=== PATIENT | male | born 1940 | race Caucasian/White ===

== ENCOUNTER 2016-02-27 18:35 | Emergency (ER) | payer MEDICARE ==
--- NOTE | 2016-02-27 19:19 | Emergency Department Record ---
History of Present Illness - General Chief complaint: Allergic Reaction Stated complaint: REACTION TO LEVAQUIN Time Seen by Provider: 02/27/16 19:13 Source: Patient, Family Mode of Arrival: Ambulatory Limitations: No limitations - History of Present Illness Initial Comments: 75yo male presents with bilateral upper thigh and hip pain today. He is concerned that this could be tendon injury or secondary to his recent starting of Levaquin. He was at physical therapy today for a right shoulder issue and mentioned this to his therapist. She informed him of the potential link to quinolones. No specific injury occurred. He has pain with going from sitting to standing. No swelling. No loss of function. No rash. No redness. PCP is Dr Guerra. He was given the antibiotic for a current but improving productive cough. MD Complaint: Other -: Days(s) Exposure: Medication Severity: Moderate Treatment Prior to Arrival: Other (Levaquin) Previous Allergy History: None - Related Data Home Medications Medication Instructions Recorded Confirmed Last Taken Levocetirizine Dihydrochloride 5 mg PO DAILY 03/22/15 05/22/15 05/16/15 [Xyzal] Lisinopril [Lisinopril] 2.5 mg PO DAILY 03/22/15 05/22/15 05/16/15 Metformin HCl [Glucophage Ir] 500 mg PO BID 03/22/15 05/22/15 05/16/15 Pravastatin Sodium [Pravastatin 40 mg PO DAILY 03/22/15 05/22/15 05/16/15 Sodium] Colesevelam HCl [Welchol] 3.75 gm PO ASDIR 02/27/16 02/27/16 Unknown Previous Rx's Medication Instructions Recorded Azithromycin [Zithromax] 250 mg PO DAILY #6 tab 02/27/16 Allergies Allergy/AdvReac Type Severity Reaction Status Date / Time Cephalosporins Allergy Unknown RASH Verified 05/17/15 10:11 Review of Systems Constitutional: Denies: Chills, Fever, Malaise, Night sweats, Weakness Eyes: Denies: Eye discharge, Eye pain, Photophobia, Vision change ENT: Reports: Congestion Respiratory: Reports: Cough. Denies: Dyspnea, Hemoptysis, Stridor, Wheezes Cardiovascular: Denies: Chest pain, Palpitations, Syncope Endocrine: Denies: Fatigue, Polydipsia, Polyuria Gastrointestinal: Denies: Abdominal pain, Diarrhea, Nausea, Vomiting Genitourinary: Denies: Dysuria, Hematuria, Urgency Musculoskeletal: Reports: As per HPI, Arthralgia, Myalgia Skin: Denies: Bruising, Change in color, Rash Neurological: Denies: Confusion, Headache, Weakness Psychiatric: Denies: Anxiety Hematological/Lymphatic: Denies: Blood Clots, Easy bleeding, Easy bruising, Swollen glands Past Medical History - SOCIAL HISTORY Smoking Status: Never smoker - RESPIRATORY Hx Respiratory Disorders: Yes Hx Asthma: Yes (no problems lately very rare inhaler usage) Hx Bronchitis: Yes Hx Sleep Apnea: Yes (uses mouth device) Hx of CPAP: No - CARDIOVASCULAR Hx Cardio Disorders: Yes Comment:: high cholesterol - NEURO Hx Neuro Disorders: No - GI Hx GI Disorders: Yes Hx Reflux: Yes (occ) - Hx Genitourinary Disorders: Yes Hx Bladder Problem: Yes (on flomax for freq nocturia) - ENDOCRINE Hx Diabetes: Yes (diet controlled pt now on oral meds) Comment:: blood sugars 100-120 - MUSCULOSKELETAL Hx Musculoskeletal Disorders: Yes - PSYCH Hx Psych Problems: No - HEMATOLOGY/ONCOLOGY Hx Hematology/Oncology Disorders: No Family Medical History Hx Diabetes: Father Physical Exam - General General Appearance: Alert, Oriented x3, Cooperative, No acute distress Limitations: No limitations - Head Head exam: Normal inspection - Eye Eye exam: Normal appearance, PERRL. negative: Conjunctival injection, Periorbital swelling - ENT ENT exam: Normal exam Ear exam: Normal external inspection Nasal Exam: Normal inspection Mouth exam: Normal external inspection Teeth exam: Normal inspection Throat exam: Normal inspection - Neck Neck exam: Normal inspection, Full ROM. negative: Tenderness - Respiratory Respiratory exam: Normal lung sounds bilaterally. negative: Accessory muscle use, Decreased breath sounds, Prolonged expiratory, Respiratory distress, Rhonchi, Stridor, Wheezes - Cardiovascular Cardiovascular Exam: Regular rate, Normal rhythm, Normal heart sounds - GI/Abdominal GI/Abdominal exam: Soft. negative: Distended, Guarding, Rigid, Tenderness - Rectal Rectal exam: Deferred - exam: Deferred - Extremities Extremities exam: Normal inspection, Full ROM, Normal capillary refill, Tenderness. negative: Calf tenderness, Joint swelling, Pedal edema Image of Full Body: 1 - soft muscles, mild bilateral tenderness, full bilateral hip extension without limition of strength or pain, no LE edema bilateral - Back Back exam: Reports: Normal inspection, Full ROM. Denies: Muscle spasm, Rash noted, Tenderness - Neurological Neurological exam: Alert, Normal gait, Oriented X3, Reflexes normal - Psychiatric Psychiatric exam: Normal affect, Normal mood - Skin Skin exam: Dry, Intact, Normal color, Warm Course - Reevaluation(s) Reevaluation #1: Vitals reviewed No acute changes No weakness or limitations on examination His Levaquin will be discontinued Supportive care recommended and follow up recheck with Dr Guerra on Tuesday. 02/27/16 19:19 Disposition Disposition: Discharge Clinical Impression: Muscle Pain, Adverse effect of drug Disposition: Home, Self-Care Condition: (1) Good Instructions: Tendinitis (ED) Additional Instructions: Rest and avoid over exertion Stop the Levaquin Start Zithromax tomorrow Follow up with Dr Guerra Tuesday Return over the weekend if worse or any new concerns. Prescriptions: Azithromycin [Zithromax] 250 mg PO DAILY #6 tab Forms: Patient Portal Access Time of Disposition: 19:21
== END 2016-02-27 19:44 | disposition home or self-care (01) ==
LOC: ER 18:35
DX: T37.8X5A Adverse effect of other specified systemic anti-infectives and antiparasitics, initial encounter (principal); M79.1 Myalgia
CPT/HCPCS: 99282

== ENCOUNTER 2017-01-28 08:29 | Emergency (ER) | payer MEDICARE ==
--- NOTE | 2017-01-28 08:49 | Emergency Department Record ---
History of Present Illness - General Chief complaint: Nausea, Vomiting, Diarrhea Stated complaint: INTESTINAL PROBLEMS, DIARRHEA Time Seen by Provider: 01/28/17 08:43 Source: Patient Mode of Arrival: Ambulatory Limitations: No limitations - History of Present Illness Initial comments: 76 yo male presents with a concern about loose stools since October. He states his doctor and his GI specialist state it could be related to his gall bladder removal 25 years ago. He has watery non bloody stools. Normal only 1- 2 a day since October. He has had 5 since mid night. No pain, blood, fever, recent antibiotics. He called his GI doctor today but was unable to get an appointment. No nausea or vomiting. MD complaint: Diarrhea -: Month(s) Description of Vomiting: Watery Description of Diarrhea: Water Location: Other (None) Radiation: None Quality: Other Consistency: Intermittent Improves with: Medication Worsens with: None Associated Symptoms: Denies other symptoms - Related Data Home Medications Medication Instructions Recorded Confirmed Last Taken Glipizide [Glipizide ER] 2.5 mg PO DAILY 01/28/17 01/28/17 01/27/17 Previous Rx's Medication Instructions Recorded Hydrocortisone Acetate [Anusol-Hc] 25 mg RC DAILY #10 supp.rect 01/28/17 Allergies Allergy/AdvReac Type Severity Reaction Status Date / Time Cephalosporins Allergy Unknown RASH Verified 01/28/17 08:48 Review of Systems Constitutional: Denies: Chills, Fever, Malaise, Weakness Eyes: Denies: Eye discharge, Eye pain, Photophobia ENT: Denies: Congestion, Throat pain Respiratory: Denies: Cough, Dyspnea, Hemoptysis, Stridor, Wheezes Cardiovascular: Denies: Chest pain Endocrine: Denies: Fatigue, Polydipsia, Polyuria Gastrointestinal: Reports: Constipation (occasionally), Diarrhea. Denies: Abdominal pain, Hematemesis, Hematochezia, Melena, Nausea, Vomiting Genitourinary: Denies: Dysuria, Frequency Musculoskeletal: Denies: Arthralgia, Back pain, Myalgia, Neck pain Skin: Denies: Bruising, Change in color, Rash Neurological: Denies: Headache, Numbness, Weakness Psychiatric: Denies: Anxiety Hematological/Lymphatic: Denies: Blood Clots, Easy bleeding, Easy bruising, Swollen glands Past Medical History - SOCIAL HISTORY Smoking Status: Never smoker - RESPIRATORY Hx Respiratory Disorders: Yes Hx Asthma: Yes (no problems lately very rare inhaler usage) Hx Bronchitis: Yes Hx Sleep Apnea: Yes (uses mouth device) Hx of CPAP: No - CARDIOVASCULAR Hx Cardio Disorders: Yes Comment:: high cholesterol - NEURO Hx Neuro Disorders: No - GI Hx GI Disorders: Yes Hx Reflux: Yes (occ) - Hx Genitourinary Disorders: Yes Hx Bladder Problem: Yes (on flomax for freq nocturia) - ENDOCRINE Hx Diabetes: Yes (diet controlled pt now on oral meds) Comment:: blood sugars 100-120 - MUSCULOSKELETAL Hx Musculoskeletal Disorders: Yes - PSYCH Hx Psych Problems: No - HEMATOLOGY/ONCOLOGY Hx Hematology/Oncology Disorders: No Family Medical History Hx Diabetes: Father Physical Exam - General General Appearance: Alert, Oriented x3, Cooperative, No acute distress Limitations: No limitations - Head Head exam: Normal inspection - Eye Eye exam: Normal appearance. negative: Conjunctival injection - ENT ENT exam: Normal exam, Mucous membranes moist Ear exam: Normal external inspection Nasal Exam: Normal inspection Mouth exam: Normal external inspection - Neck Neck exam: Normal inspection, Full ROM. negative: Tenderness - Respiratory Respiratory exam: Normal lung sounds bilaterally. negative: Respiratory distress - Cardiovascular Cardiovascular Exam: Regular rate, Normal rhythm, Normal heart sounds - GI/Abdominal GI/Abdominal exam: Soft, Normal bowel sounds. negative: Distended, Guarding, Rebound, Rigid, Tenderness - Rectal Rectal exam: Heme (-) stool, Hemorrhoids (small right sided non tender, non thrombosed hemorrhoid) - exam: Deferred - Extremities Extremities exam: Normal inspection, Full ROM, Normal capillary refill. negative: Tenderness - Back Back exam: Reports: Normal inspection, Full ROM. Denies: Muscle spasm, Rash noted, Tenderness - Neurological Neurological exam: Alert, Normal gait, Oriented X3 - Psychiatric Psychiatric exam: Normal affect, Normal mood. negative: Agitated, Anxious - Skin Skin exam: Dry, Intact, Normal color, Warm Course - Reevaluation(s) Reevaluation #1: 01/28/17 08:48 The patient provided a stool sample 01/28/17 09:19 The CBC was reviewed. No acute changes. 01/28/17 10:08 the CMP was negative The stool was negative for rota, blood, and WBC's 01/28/17 10:17 The Stool studies are all negative Medical Decision Making - Lab Data Result diagrams: 01/28/17 09:00 01/28/17 09:00 Disposition Disposition: Discharge Clinical Impression: Diarrhea, Hemorrhage Disposition: Home, Self-Care Condition: (1) Good Instructions: Hemorrhoids (ED), Acute Diarrhea (ED) Additional Instructions: Call your GI doctor today for close follow up Return if you have blood, fever, or pain Prescriptions: Hydrocortisone Acetate [Anusol-Hc] 25 mg RC DAILY #10 supp.rect Forms: Patient Portal Access Time of Disposition: 10:17 Quality - Quality Measures Quality Measures: N/A - Blood Pressure Screening Does Patient Have Any of the Following: No Blood Pressure Classification: Hypertensive Reading Systolic Measurement: 140 Diastolic Measurement: 74 Screening for High Blood Pressure: < Pre-Hypertensive BP, F/U Documented > [ G8950] Pre-Hypertensive Follow-up Interventions: Referral to alternative/primary care provider.
[2017-01-28 09:11] LABS: HEMATOCRIT 38.6 % (42.0-52.0); HEMOGLOBIN 12.1 gm/dl (14.0-18.0); MEAN CELL VOLUME 80.4 fl (81-97); MEAN CORPUSCULAR HEMOGLOBIN 25.2 pg (27-33); MEAN CORPUSCULAR HGB CONC 31.3 g/dl (32-36); MEAN PLATELET VOLUME 10.8 fl (7.4-10.4); PLATELET COUNT 270 K/uL (130-400); RED CELL DISTRIBUTION WIDTH 16.2 % (11.5-14.5); WHITE BLOOD COUNT W/O DIFF 10.8 K/uL (4.2-12.2)
[2017-01-28 09:19] LABS: BLOOD UREA NITROGEN 12 mg/dL (8-23); CREATININE 0.7 mg/dL (0.7-1.2); EST GLOMERULAR FILTRATION RATE > 60 mL/min
[2017-01-28 09:20] LABS: TOTAL PROTEIN 7.5 g/dL (6.6-8.7)
[2017-01-28 09:22] LABS: GLUCOSE,RANDOM 156 mg/dL (74-109)
[2017-01-28 09:25] LABS: ALB/GLOB RATIO 1.3 (1.1-1.8); ALBUMIN 4.3 g/dL (4.0-5.0); ALKALINE PHOSPHATASE 78 U/L (40-129); ALT/SGPT 11 U/L (<41); AST/SGOT 17 U/L (10.0-50.0)
[2017-01-28 09:34] LABS: GIARDIA LAMBLIA ANTIGEN NOT DETECTED (NOT DETECT); ROTOVIRUS NOT DETECTED (NOT DETECT)
[2017-01-28 10:13] LABS: CRYPTOSPORIDIUM PARVUM ANTIGEN NOT DETECTED (NOT DETECT); MOLECULAR C DIFF TOXIN SCREEN NOT DETECTED (NOT DETECT)
== END 2017-01-28 10:50 | disposition home or self-care (01) ==
LOC: ER 08:29
DX: R19.7 Diarrhea, unspecified (principal); K64.9 Unspecified hemorrhoids
CPT/HCPCS: 80053; 82272; 85027; 87329; 87425; 87493; 89055; 99283

== ENCOUNTER 2017-03-31 10:22 | Day surgery (SDC) | payer MEDICARE ==
[2017-03-31] MEDS ORDERED: MIDAZOLAM HCL 2MG/2ML VIAL IV ONE (10:23)
[2017-03-31] MEDS ORDERED: PROPOFOL 10 MG/ML VIAL IV ONE (10:23)
[2017-03-31] MEDS ORDERED: LIDOCAINE 2% MDV (20MG/ML) 20ML VIAL IV ONE (10:23)
--- NOTE | 2017-04-01 12:50 | Operative Note ---
DATE OF SURGERY: 03/31/2017 OPERATION: COLONOSCOPY with random biopsy and photo. PREOPERATIVE DIAGNOSIS: Personal history of colon polyps and diarrhea. POSTOPERATIVE DIAGNOSIS: Normal exam, rule out microscopic colitis. PROCEDURE: After informed consent was obtained from the patient, he was placed in the left lateral decubitus position in the endoscopy suite, sedated and monitored by the department of anesthesia. Digital rectal examination was unremarkable. A well-lubricated [id number] colonoscope was inserted into the rectum and advanced to the cecum. Preparation quality was excellent. The cecum and terminal ileum, ascending colon, transverse colon, descending colon, sigmoid colon, and rectum were unremarkable. No polyps, mass lesions, or inflammation was seen. Forward and J-turn views of the rectum and anorectum were unremarkable. Random biopsies were obtained from the ascending colon, transverse colon, and descending colon. No excessive bleeding was noted. RECOMMENDATIONS: I would suggest the patient resume his medications and diet. Further recommendations based on tissue histology. If no evidence of microscopic colitis is found, I would question the possibility of him having diarrhea related to his metformin use. Other possibility would be irritable bowel. Repeat colonoscopy in 5 years would be suggested based on his history of polyps. As always, thank you for allowing me to participate in the healthcare of your patients. CC: Rubi CARIAS
== END 2017-03-31 12:08 | disposition home or self-care (01) ==
LOC: HOP 10:22
PROVIDERS: ATTEND Internal Medicine Gastroenterology
DX: R19.7 Diarrhea, unspecified (principal); Z86.010 Personal history of colon polyps; E11.9 Type 2 diabetes mellitus without complications; E78.00 Pure hypercholesterolemia, unspecified; Z79.84 Long term (current) use of oral hypoglycemic drugs; I10 Essential (primary) hypertension

== ENCOUNTER 2017-05-05 12:03 | Day surgery (SDC) | payer MEDICARE ==
[2017-05-05] MEDS ORDERED: NALOXONE 0.4 MG/1 ML VIAL IVP ONE (12:04)
[2017-05-05] MEDS ORDERED: LIDOCAINE 2% MDV (20MG/ML) 20ML VIAL IV ONE (12:04)
[2017-05-05] MEDS ORDERED: PROPOFOL 10 MG/ML VIAL IV ONE (12:04)
[2017-05-05] MEDS ORDERED: FENTANYL PF 100MCG/2ML VIAL IV ONE (12:04)
--- NOTE | 2017-05-06 12:40 | Operative Note ---
DATE OF SURGERY: 05/05/2017 OPERATION: ESOPHAGOGASTRODUODENOSCOPY. PREOPERATIVE DIAGNOSIS: Episodic dysphagia. POSTOPERATIVE DIAGNOSIS: Esophageal ulceration. PROCEDURE: After informed consent was obtained from the patient, he was placed in the left lateral decubitus position in the endoscopy suite, sedated and monitored by the department of anesthesia. A well-lubricated [id number] gastroscope was placed in the posterior oropharynx and under direct visualization passed to the proximal esophagus. The endoscope was advanced through the proximal, mid, and distal esophagus. The GE junction demonstrated erythematous change as well as an ulceration. The remainder of the esophagus appeared normal. No strictures, varices, or mass lesions were seen. The gastric body, antrum, pylorus, duodenal bulb and sweep were unremarkable. J-turn views of the proximal stomach were unrevealing. The endoscope was straightened and retracted from the patient with no new findings noted. The patient did have some desaturation requiring jaw lift and did have some Ambu bag resuscitation with prompt improvement of his oxygen saturation to the 98% range. He will be monitored and observed in recovery. RECOMMENDATIONS: We will start him on pantoprazole 40 mg daily and repeat his upper endoscopy in 8 weeks to assess healing. As always, thank you for allowing me to participate in the healthcare of your patients. CC: EDUARD MOYA D.O. JOSE E
== END 2017-05-05 13:25 | disposition home or self-care (01) ==
LOC: HOP 12:03
PROVIDERS: ATTEND Internal Medicine Gastroenterology
DX: K22.10 Ulcer of esophagus without bleeding (principal); E78.00 Pure hypercholesterolemia, unspecified; I10 Essential (primary) hypertension; E11.9 Type 2 diabetes mellitus without complications; Z79.84 Long term (current) use of oral hypoglycemic drugs
CPT/HCPCS: 43235; 00731; J3010; J2310

== ENCOUNTER 2017-07-07 12:14 | Day surgery (SDC) | payer MEDICARE ==
[2017-07-07] MEDS ORDERED: PROPOFOL 10 MG/ML VIAL IV ONE (12:15)
[2017-07-07] MEDS ORDERED: LIDOCAINE 2% MDV (20MG/ML) 20ML VIAL IV ONE (12:15)
--- NOTE | 2017-07-08 12:30 | Operative Note ---
DATE OF SURGERY: 07/07/2017 OPERATION: ESOPHAGOGASTRODUODENOSCOPY with biopsy. PREOPERATIVE DIAGNOSIS: Esophageal ulcer followup. POSTOPERATIVE DIAGNOSES: 1. Small hiatal hernia. 2. Irregular Z line, rule out short-segment Gomez's. 3. Healed ulcer. 4. GE junction ring. PROCEDURE: After informed consent was obtained from the patient, he was placed in the left lateral decubitus position in the endoscopy suite, sedated and monitored by the department of anesthesia. Once sedated, a well-lubricated [id number] gastroscope was placed in the posterior oropharynx and under direct visualization passed to the proximal esophagus. The endoscope was advanced through the proximal, mid, and distal esophagus. The GE junction demonstrated a resolution of the prior ulceration. However, there was noted to be irregularity of the squamocolumnar border perhaps indicating short-segment Gomez's. There was also a large-caliber ring. There is a small hiatal hernia as well. The gastric body, antrum, pylorus, duodenal bulb and sweep were unremarkable. J-turn views of the proximal stomach revealed a small hiatal hernia. The endoscope was then straightened. The GE junction was biopsied to rule out short-segment Gomez's. The endoscope was removed from the patient with no new findings noted. RECOMMENDATIONS: The patient should continue his PPI daily. Further recommendations will be forthcoming once tissue histology is available. As always, thank you for allowing me to participate in the healthcare of your patients. CC: Rubi CARIAS
== END 2017-07-07 13:45 | disposition home or self-care (01) ==
LOC: HOP 12:14
PROVIDERS: ATTEND Internal Medicine Gastroenterology
DX: K31.89 Other diseases of stomach and duodenum (principal); K44.9 Diaphragmatic hernia without obstruction or gangrene; K22.2 Esophageal obstruction; I10 Essential (primary) hypertension; E78.00 Pure hypercholesterolemia, unspecified; E11.9 Type 2 diabetes mellitus without complications; Z79.84 Long term (current) use of oral hypoglycemic drugs

== ENCOUNTER 2018-02-02 09:34 | Emergency (ER) | payer MEDICARE ==
--- NOTE | 2018-02-02 09:57 | Emergency Department Record ---
History of Present Illness - General Chief Complaint: Cough Stated Complaint: COUGH/SINUS PRESSURE Time Seen by Provider: 02/02/18 09:44 Source: Patient Mode of Arrival: Ambulatory Limitations: No limitations - History of Present Illness Initial Comments: The patient is here due to a one week hx of cough, congestion, and sputum production. He denies any Cp, SOB, fever, or SIMI. The patient's is ill with the same issues also. Complaint: Cough Onset/Timin -: Week(s) - Related Data Previous Rx's Medication Instructions Recorded Azithromycin [Zithromax] 250 mg PO ASDIR #6 tab 02/02/18 Allergies Allergy/AdvReac Type Severity Reaction Status Date / Time levofloxacin [From Levaquin] Allergy Mild rash Verified 02/02/18 09:39 Cephalosporins Allergy Unknown RASH Verified 02/02/18 09:39 Travel Screening - Travel/Exposure Within Last 30 Days Have you traveled within the last 30 days?: No - Travel/Exposure Within Last Year Have you traveled outside the [place] in the last year?: No - Additonal Travel Details Have you been exposed to anyone with a communicable illness?: No - Travel Symptoms Symptom Screening: None Review of Systems Constitutional: Denies: Chills, Fever Eyes: Denies: Eye discharge ENT: Reports: Congestion Respiratory: Reports: Cough. Denies: Dyspnea Past Medical History - SOCIAL HISTORY Smoking Status: Never smoker Alcohol Use: None Drug Use: None - RESPIRATORY Hx Respiratory Disorders: Yes Hx Asthma: Yes (no problems lately very rare inhaler usage) Hx Bronchitis: Yes Hx Sleep Apnea: Yes (uses a mouth appliance instead of cpap) Hx of CPAP: No (does not use) - CARDIOVASCULAR Hx Cardio Disorders: Yes Hx Hypertension: Yes (well controlled on rx) Comment:: high cholesterol - NEURO Hx Neuro Disorders: Yes Hx Headaches: Yes (sinus headaches occ) - GI Hx GI Disorders: Yes Hx Reflux: Yes (occ) Hx Nausea/Vomiting: Yes (occ nauesa) Hx Ulcer: Yes Hx of Polyps: Yes Comment:: hx rafael-carney tear, diarrhea - Hx Genitourinary Disorders: Yes Hx Bladder Problem: Yes (some night urinations) - ENDOCRINE Hx Endocrine Disorders: Yes Hx Diabetes: Yes Hx Thyroid Disease: No Comment:: blood sugars 120-150's - MUSCULOSKELETAL Hx Musculoskeletal Disorders: Yes Hx Arthritis: Yes Comment:: rt shoulder problems has PT. - PSYCH Hx Psych Problems: No - HEMATOLOGY/ONCOLOGY Hx Hematology/Oncology Disorders: No Family Medical History Any Significant Family History?: Yes Family Hx Comment (NOT TO BE USED IN PLACE OF ITEMS BELOW): sister-may have had dysphagia with dilation, unknown for sure, pt lives in a [place] [facility] now. Hx Cancer: Brother/Sister *Cancer Comment: ? cancer prostate Hx Dementia: Brother/Sister *Dementia Comment: brother-parkinson's Hx Diabetes: Father Physical Exam - General General Appearance: Alert, Oriented x3, Cooperative, No acute distress - Head Head exam: Atraumatic, Normocephalic, Normal inspection - Eye Eye exam: Normal appearance, PERRL, EOMI - ENT Throat exam: Normal inspection. negative: Tonsillar erythema, Tonsillar exudate - Neck Neck exam: Normal inspection, Full ROM. negative: Tenderness - Respiratory Respiratory exam: Normal lung sounds bilaterally. negative: Respiratory distress - Cardiovascular Cardiovascular Exam: Regular rate, Normal rhythm, Normal heart sounds - GI/Abdominal GI/Abdominal exam: Soft, Normal bowel sounds. negative: Tenderness - Extremities Extremities exam: Normal inspection, Full ROM, Normal capillary refill. negative: Tenderness - Neurological Neurological exam: Alert. negative: Motor sensory deficit Course Vital Signs 02/02/18 09:42 Temperature 98.4 F Pulse Rate 90 Respiratory 20 Rate Blood Pressure 132/82 Pulse Ox 95 - Reevaluation(s) Reevaluation #1: I did discuss with the patient that it appears he does have a URI and we will place the patient on a Zpak for treatment. 02/02/18 10:01 Disposition Disposition: Discharge Clinical Impression: Bronchitis Disposition: Home, Self-Care Condition: (2) Stable Instructions: Cold Symptoms (ED) Additional Instructions: Please take the Zpak as directed and please continue your cough medicine. Please see your family doctor or return to the ER for any worsening symptoms or if not better. Prescriptions: Azithromycin [Zithromax] 250 mg PO ASDIR #6 tab Forms: Patient Portal Access Time of Disposition: 10:03 Quality - Quality Measures Quality Measures: N/A - Blood Pressure Screening View Details: Yes Does Patient Have Any of the Following: No Blood Pressure Classification: Pre-Hypertensive BP Reading Systolic Measurement: 132 Diastolic Measurement: 82 Screening for High Blood Pressure: < Pre-Hypertensive BP, F/U Documented > [ G8950] Pre-Hypertensive Follow-up Interventions: Referral to alternative/primary care provider.
== END 2018-02-02 10:12 | disposition home or self-care (01) ==
LOC: ER 09:34
DX: J20.9 Acute bronchitis, unspecified (principal); I10 Essential (primary) hypertension
CPT/HCPCS: 99282

== ENCOUNTER 2018-02-07 09:02 | Emergency (ER) | payer MEDICARE ==
[2018-02-07] MEDS ORDERED: METHYLPREDNISOLONE PF 125MG/VIAL IM ONE (09:25)
[2018-02-07] MEDS ORDERED: IPRATROPIUM/ALBUTEROL (0.5MG/3MG) NEB INH ONE (09:28)
[2018-02-07 09:35] LABS: INFLUENZA A NEGATIVE (NEGATIVE); INFLUENZA B NEGATIVE (NEGATIVE)
--- NOTE | 2018-02-07 09:38 | Emergency Department Record ---
History of Present Illness - General Chief Complaint: Cough Stated Complaint: COUGH,CONGESTED Time Seen by Provider: 02/07/18 09:11 Source: Patient Mode of Arrival: Ambulatory Limitations: No limitations - History of Present Illness Initial Comments: pt went to [facility] for a cough a week ago and he states he was told it was nothing. he got worse and came to the ed the next day and was given a zpack. he continues to not get better and he feels he needs a cxr. he has a cough MD Complaint: Cough, Nasal congestion, Rhinorrhea Onset/Timin -: Days(s) Severity scale (1-10): 4 Consistency: Getting worse Improves With: Nothing Worsens With: Nothing Context: Sick contacts Associated Symptoms: Cough, Rhinorrhea, Shortness of breath Treatments Prior to Arrival: None - Related Data Previous Rx's Medication Instructions Recorded Azithromycin [Zithromax] 250 mg PO ASDIR #6 tab 02/02/18 Albuterol Sulfate 0.083% [Neb] 3 ml NEB .EVERY 4-6 HOURS #10 box 02/07/18 [Albuterol Sulfate] Prednisone [Prednisone 20Mg] 20 mg PO Q12HR #4 tab 02/07/18 Allergies Allergy/AdvReac Type Severity Reaction Status Date / Time levofloxacin [From Levaquin] Allergy Mild rash Verified 02/07/18 09:13 Cephalosporins Allergy Unknown RASH Verified 02/07/18 09:13 Travel Screening - Travel/Exposure Within Last 30 Days Have you traveled within the last 30 days?: No - Travel/Exposure Within Last Year Have you traveled outside the [place] in the last year?: No - Additonal Travel Details Have you been exposed to anyone with a communicable illness?: No - Travel Symptoms Symptom Screening: None Review of Systems Reviewed: No additional complaints except as noted below Constitutional: Reports: As per HPI. Denies: Chills, Fever, Malaise, Night sweats, Weakness, Weight change Eyes: Reports: As per HPI. Denies: Eye discharge, Eye pain, Photophobia, Vision change ENT: Reports: As per HPI. Denies: Congestion, Dental pain, Ear pain, Epistaxis , Hearing loss, Throat pain Respiratory: Reports: As per HPI. Denies: Cough, Dyspnea, Hemoptysis, Stridor, Wheezes Cardiovascular: Reports: As per HPI. Denies: Arrhythmia, Chest pain, Dyspnea on exertion, Edema, Murmurs, Orthopnea, Palpitations, Paroxysmal nocturnal dyspnea, Rheumatic Fever, Syncope Endocrine: Reports: As per HPI. Denies: Fatigue, Heat or cold intolerance, Polydipsia, Polyuria Gastrointestinal: Reports: As per HPI. Denies: Abdominal pain, Constipation, Diarrhea, Hematemesis, Hematochezia, Melena, Nausea, Vomiting Genitourinary: Reports: As per HPI. Denies: Dysuria, Frequency, Hematuria, Incontinence, Retention, Testicular pain, Testicular mass, Urgency Musculoskeletal: Reports: As per HPI. Denies: Arthralgia, Back pain, Gout, Joint swelling, Myalgia, Neck pain Skin: Reports: As per HPI. Denies: Bruising, Change in color, Change in hair/ nails, Lesions, Pruritus, Rash Neurological: Reports: As per HPI. Denies: Abnormal gait, Confusion, Headache, Numbness, Paresthesias, Seizure, Tingling, Tremors, Vertigo, Weakness Psychiatric: Reports: As per HPI. Denies: Anxiety, Auditory hallucinations, Depression, Homicidal thoughts, Suicidal thoughts, Visual hallucinations Hematological/Lymphatic: Reports: As per HPI. Denies: Anemia, Blood Clots, Easy bleeding, Easy bruising, Swollen glands Past Medical History - SOCIAL HISTORY Smoking Status: Never smoker Alcohol Use: None Drug Use: None - RESPIRATORY Hx Respiratory Disorders: Yes Hx Asthma: Yes (no problems lately very rare inhaler usage) Hx Bronchitis: Yes Hx Sleep Apnea: Yes (uses a mouth appliance instead of cpap) Hx of CPAP: No (does not use) - CARDIOVASCULAR Hx Cardio Disorders: Yes Hx Hypertension: Yes (well controlled on rx) Comment:: high cholesterol - NEURO Hx Neuro Disorders: Yes Hx Headaches: Yes (sinus headaches occ) - GI Hx GI Disorders: Yes Hx Reflux: Yes (occ) Hx Nausea/Vomiting: Yes (occ nauesa) Hx Ulcer: Yes Hx of Polyps: Yes Comment:: hx rafael-carney tear, diarrhea - Hx Genitourinary Disorders: Yes Hx Bladder Problem: Yes (some night urinations) - ENDOCRINE Hx Endocrine Disorders: Yes Hx Diabetes: Yes Hx Thyroid Disease: No Comment:: blood sugars 120-150's - MUSCULOSKELETAL Hx Musculoskeletal Disorders: Yes Hx Arthritis: Yes Comment:: rt shoulder problems has PT. - PSYCH Hx Psych Problems: No - HEMATOLOGY/ONCOLOGY Hx Hematology/Oncology Disorders: No Family Medical History Any Significant Family History?: Yes Family Hx Comment (NOT TO BE USED IN PLACE OF ITEMS BELOW): sister-may have had dysphagia with dilation, unknown for sure, pt lives in a care home now. Hx Cancer: Brother/Sister *Cancer Comment: ? cancer prostate Hx Dementia: Brother/Sister *Dementia Comment: brother-parkinson's Hx Diabetes: Father Physical Exam - General General Appearance: Alert, Oriented x3, Cooperative, Mild distress - Head Head exam: Normal inspection - Eye Eye exam: Normal appearance, PERRL, EOMI Pupils: Normal accommodation - ENT ENT exam: Normal exam, Mucous membranes moist, Normal external ear exam, Normal orophraynx Ear exam: Normal external inspection. negative: External canal tenderness Nasal Exam: Normal inspection. negative: Discharge, Sinus tenderness Mouth exam: Normal external inspection, Tongue normal Teeth exam: Normal inspection. negative: Dental caries Throat exam: Normal inspection. negative: Tonsillar erythema, Tonsillar exudate - Neck Neck exam: Normal inspection, Full ROM. negative: Tenderness - Respiratory Respiratory exam: Rales, Wheezes. negative: Respiratory distress - Cardiovascular Cardiovascular Exam: Regular rate, Normal rhythm, Normal heart sounds - GI/Abdominal GI/Abdominal exam: Soft, Normal bowel sounds. negative: Tenderness - Rectal Rectal exam: Deferred - exam: Deferred - Extremities Extremities exam: Normal inspection, Full ROM, Normal capillary refill. negative: Tenderness - Back Back exam: Reports: Normal inspection, Full ROM. Denies: Muscle spasm, Rash noted, Tenderness - Neurological Neurological exam: Alert, CN II-XII intact, Normal gait, Oriented X3 - Psychiatric Psychiatric exam: Normal affect, Normal mood - Skin Skin exam: Dry, Intact, Normal color, Warm Course Vital Signs 02/07/18 02/07/18 09:05 09:18 Temperature 97.6 F Pulse Rate 89 88 Respiratory 20 18 Rate Blood Pressure 152/89 Pulse Ox 96 96 Disposition Disposition: Discharge Clinical Impression: Bronchitis Disposition: Home, Self-Care Condition: (1) Good Instructions: Acute Bronchitis (ED), Wheezing (ED) Additional Instructions: follow up with family doctor. return sooner if worse. continue current meds Prescriptions: Prednisone [Prednisone 20Mg] 20 mg PO Q12HR #4 tab Albuterol Sulfate 0.083% [Neb] [Albuterol Sulfate] 3 ml NEB .EVERY 4-6 HOURS # 10 box Forms: Patient Portal Access Quality - Quality Measures Quality Measures: N/A - Blood Pressure Screening Does Patient Have Any of the Following: No Blood Pressure Classification: Pre-Hypertensive BP Reading Systolic Measurement: 152 Diastolic Measurement: 89 Screening for High Blood Pressure: < Pre-Hypertensive BP, F/U Documented > [ G8950] Pre-Hypertensive Follow-up Interventions: Follow-up with rescreen every year.
--- NOTE | 2018-02-08 09:16 | RADIOLOGY REPORT ---
EXAM: CHEST, TWO VIEWS HISTORY: COUGH AND CONGESTION FOR TEN DAYS. TECHNIQUE: Two views of the chest were obtained. FINDINGS: The cardiomediastinal silhouette is stable. Aortic atherosclerosis. There is a small hiatal hernia. The lungs and pleural spaces are clear. Degenerative changes thoracic spine. Previous surgical change right shoulder. IMPRESSION: 1. NO ACUTE PROCESS. 2. SMALL HIATAL HERNIA. JOB NUMBER: [id number] MTDD
== END 2018-02-07 10:42 | disposition home or self-care (01) ==
LOC: ER 09:02
DX: J20.9 Acute bronchitis, unspecified (principal); R06.02 Shortness of breath; E11.9 Type 2 diabetes mellitus without complications; I10 Essential (primary) hypertension
CPT/HCPCS: 71046; 87400; 94640; 96372; 99283; 99284; J2930

== ENCOUNTER 2018-05-10 07:03 | Day surgery (SDC) | payer MEDICARE ==
[2018-05-10] MEDS ORDERED: LIDOCAINE 1% W/EPI 1:200,000 MPF 30ML SQ ONE (07:04)
[2018-05-10] MEDS ORDERED: DEXAMETHASONE PRESERVATIVE FREE 10MG/ML VIAL IV ONE (07:04)
[2018-05-10] MEDS ORDERED: LIDOCAINE 2% MDV (20MG/ML) 20ML VIAL IV ONE ×2 (07:04)
[2018-05-10] MEDS ORDERED: BUPIVACAINE 0.5% W/EPI MPF 30 ML VIAL IVP ONE (07:04)
[2018-05-10] MEDS ORDERED: BUPIVACAINE 0.5% (5MG/ML) PF 30ML VIAL IVP ONE (07:04)
[2018-05-10] MEDS ORDERED: PROPOFOL 10 MG/ML VIAL IV ONE ×2 (07:04)
--- NOTE | 2018-05-10 16:48 | Operative Note ---
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 OPERATION: FLUOROSCOPICALLY-GUIDED INFILTRATIONAL BLOCK BILATERAL LUMBAR FACETS 3-4, 4-5, AND 5-1. SURGEON: VLADIMIR PENA D.O. ANESTHESIA: LOCAL SEDATION. ANESTHESIA PROVIDER: CHAO CALL. INDICATION: This patient presents with primary back pain. Examination shows tenderness in the lumbar spine. Range of motion does cause pain to the back with extension. Diagnostics show diffuse multiple levels of spondylosis with disc abnormalities at both 4-5 and 5-1. PROCEDURE: Intravenous line, vital sign monitoring, IV sedation, prepped, draped, sterile technique. Under imaging, facets at 3-4, 4-5, and 5-1 bilateral. Each one of these points on the skin infiltrated. A 22-gauge 3.5 inch needles into the facet with 1 mL of 0.5% Marcaine and Dexamethasone injected; this was repeated bilaterally. Areas cleaned. Topical antibiotics. Sterile dressing applied. We will monitor and evaluate. cc: Dr. Guerra JOB NUMBER: [id number] MTDD
== END 2018-05-10 09:36 | disposition home or self-care (01) ==
LOC: SUR 07:03
PROVIDERS: ATTEND Pain Medicine Interventional Pain Medicine
DX: M47.816 Spondylosis without myelopathy or radiculopathy, lumbar region (principal); I10 Essential (primary) hypertension; E11.9 Type 2 diabetes mellitus without complications; E78.00 Pure hypercholesterolemia, unspecified; D64.9 Anemia, unspecified; G47.33 Obstructive sleep apnea (adult) (pediatric)
CPT/HCPCS: 64490; 64491; 64492; 01992; J1100

== ENCOUNTER 2018-12-14 16:08 | Emergency (ER) | payer MEDICARE ==
--- NOTE | 2018-12-14 16:40 | Emergency Department Record ---
History of Present Illness - General Chief Complaint: Fall Injury Stated Complaint: FALL INJURY Time Seen by Provider: 12/14/18 16:28 Source: Patient Mode of Arrival: Ambulatory Limitations: No limitations - History of Present Illness Initial Comments: The patient is here due to L buttock pain for 8 hours. He was in his garage and tripped and fell and landed on his L hip. The hip has been painful since. The patient has been able to walk with no difficulty since the fall. He denies any Head injury, neck pain, back or chest pain. The patient is not on any blood thinners. 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 Witnessed: No Place Fall Occurred: Home Loss of Consciousness: None Prolonged Down Time?: No Symptoms Prior to Fall: None Location: Pelvis, Buttocks Severity: Mild Severity scale (1-10): 1 Quality: Aching Associated Symptoms: Denies - Ella Coma Scale Eye Response: (4) Open spontaneously Motor Response: (6) Obeys commands Verbal Response: (5) Oriented Ella Total: 15 - Related Data Allergies Allergy/AdvReac Type Severity Reaction Status Date / Time levofloxacin [From Levaquin] Allergy Mild rash Verified 09/03/18 10:47 Cephalosporins Allergy Unknown RASH Verified 09/03/18 10:47 Travel Screening - Travel/Exposure Within Last 30 Days Have you traveled within the last 30 days?: No - Travel/Exposure Within Last Year Have you traveled outside the [place] in the last year?: No - Additonal Travel Details Have you been exposed to anyone with a communicable illness?: No - Travel Symptoms Symptom Screening: None Review of Systems Constitutional: Denies: Chills, Fever Eyes: Denies: Eye discharge ENT: Denies: Congestion Respiratory: Denies: Cough, Dyspnea Past Medical History - SOCIAL HISTORY Smoking Status: Never smoker - RESPIRATORY Hx Respiratory Disorders: Yes Hx Asthma: Yes (no problems lately very rare inhaler usage) Hx Bronchitis: Yes Hx Sleep Apnea: Yes (uses a mouth appliance instead of cpap) Hx of CPAP: No (does not use) - CARDIOVASCULAR Hx Cardio Disorders: Yes Hx Hypertension: Yes (well controlled on rx) Comment:: high cholesterol - NEURO Hx Neuro Disorders: Yes Hx Headaches: Yes (sinus headaches occ) Hx TIA: Yes (May 2018) - GI Hx GI Disorders: Yes Hx Reflux: Yes (occ) Hx Nausea/Vomiting: Yes (occ nauesa) Hx Ulcer: Yes Hx of Polyps: Yes Comment:: hx rafael-carney tear, diarrhea - Hx Genitourinary Disorders: Yes Hx Bladder Problem: Yes (NOCTURIA) - ENDOCRINE Hx Endocrine Disorders: Yes Hx Diabetes: Yes Hx Thyroid Disease: No Comment:: DOESNT CHECK BLOOD SUGAR REGULARLY - MUSCULOSKELETAL Hx Musculoskeletal Disorders: Yes Hx Arthritis: Yes - PSYCH Hx Psych Problems: No - HEMATOLOGY/ONCOLOGY Hx Hematology/Oncology Disorders: Yes Hx Anemia: Yes Family Medical History Any Significant Family History?: Yes Family Hx Comment (NOT TO BE USED IN PLACE OF ITEMS BELOW): sister-may have had dysphagia with dilation, unknown for sure, pt lives in a longterm now. Hx Cancer: Brother/Sister *Cancer Comment: ? cancer prostate Hx Dementia: Brother/Sister *Dementia Comment: brother-parkinson's Hx Diabetes: Father Physical Exam - General General Appearance: Alert, Oriented x3, Cooperative, No acute distress - Head Head exam: Atraumatic, Normocephalic - Eye Eye exam: Normal appearance - Neck Neck exam: Normal inspection, Full ROM. negative: Tenderness - Respiratory Respiratory exam: Normal lung sounds bilaterally. negative: Respiratory distress - Cardiovascular Cardiovascular Exam: Regular rate, Normal rhythm, Normal heart sounds - GI/Abdominal GI/Abdominal exam: Soft, Normal bowel sounds. negative: Tenderness - Extremities Extremities exam: Normal inspection, Full ROM, Normal capillary refill, Tenderness (There is mild L hip and buttock tenderness to palpation.) - Back Back exam: Reports: Normal inspection. Denies: Muscle spasm, Paraspinal tenderness, Vertebral tenderness - Neurological Neurological exam: Alert, Normal gait, Oriented X3. negative: Abnormal gait, Altered, Motor sensory deficit - Psychiatric Psychiatric exam: negative: Anxious Course Vital Signs 12/14/18 16:21 Temperature 97.5 F L Pulse Rate 82 Respiratory 16 Rate Blood Pressure 96/61 Pulse Ox 95 Disposition Disposition: Discharge Clinical Impression: Contusion of hip Qualifiers: Encounter type: initial encounter Laterality: left Qualified Code(s): S70.02XA - Contusion of left hip, initial encounter Disposition: Home, Self-Care Condition: (2) Stable Instructions: Hip Contusion (ED) Additional Instructions: Please use Tylenol for pain and rest. Please see your doctor next week if not better and return to the ER for any worsening symptoms. Forms: Patient Portal Access Time of Disposition: 17:03 Quality - Quality Measures Quality Measures: N/A - Blood Pressure Screening View Details: Yes Does Patient Have Any of the Following: No Blood Pressure Classification: Normal BP Reading Systolic Measurement: 96 Diastolic Measurement: 61 Screening for High Blood Pressure: < Normal BP, F/U Not Required > [G8783]
--- NOTE | 2018-12-14 16:55 | RADIOLOGY REPORT ---
EXAMINATION: Left Hip Minimum Two Views EXAM DATE: 12/14/2018 4:52 PM TECHNIQUE: AP pelvis and left frog leg lateral hip views INDICATION: trauma COMPARISON: None ENCOUNTER: Initial FINDINGS: 3 views of the left hip show no evidence of fracture or dislocation. Alignment is anatomic. Mild dege nerative changes are present within both hips symmetrically. Moderate degenerative changes are presen t within the visualized lower lumbar spine. IMPRESSION: No fracture or dislocation. Dictated by: Александр Hyde MD on 12/14/2018 4:53 PM. .
== END 2018-12-14 17:12 | disposition home or self-care (01) ==
LOC: ER 16:08
DX: S70.02XA Contusion of left hip, initial encounter (principal); W01.10XA Fall on same level from slipping, tripping and stumbling with subsequent striking against unspecified object, initial encounter; Y92.094 Garage of other non-institutional residence as the place of occurrence of the external cause; I10 Essential (primary) hypertension; E11.9 Type 2 diabetes mellitus without complications
CPT/HCPCS: 99283

== ENCOUNTER 2018-12-21 11:49 | Day surgery (SDC) | payer MEDICARE ==
[2018-12-21] MEDS ORDERED: LIDOCAINE 2% MDV (20MG/ML) 20ML VIAL IV ONE (11:50)
[2018-12-21] MEDS ORDERED: PROPOFOL 10 MG/ML VIAL IV ONE (11:50)
--- NOTE | 2018-12-21 15:20 | Operative Note ---
OPERATION: ESOPHAGOGASTRODUODENOSCOPY with biopsy and balloon dilation. PREOPERATIVE DIAGNOSIS: Dysphagia and abnormal esophagram. POSTOPERATIVE DIAGNOSES: 1. GE junction stricture. 2. Hiatal hernia. 3. Esophagitis. PROCEDURE: After informed consent was obtained from the patient, he was placed in the left lateral decubitus position in the endoscopy suite, sedated and monitored by the department of anesthesia. A well-lubricated [id number] gastroscope was placed in the posterior oropharynx under direct visualization and passed to the proximal esophagus. The endoscope was advanced through the proximal, mid, and distal esophagus. The GE junction demonstrated erythema and suspected inflammatory changes. There was also a moderate- to large-caliber stricture. There is a large hiatal hernia. The subdiaphragmatic stomach as well as the hernia as well as the pylorus, duodenal bulb, and sweep were unremarkable. J- turn views of the proximal stomach revealed a large hiatal hernia. The endoscope was straightened. The GE junction was biopsied multiple times. At this point, a balloon dilator was placed through the endoscope. This was a guidewire-assisted balloon dilator. The balloon was inflated to 12 mm and held but there was no waste or pressure placed on the stricture. The balloon was then inflated to 13.5 mm and held for 1 minute. The balloon was subsequently deflated. There were no deep tears or superficial tears readily apparent. As a result, the balloon was re-inflated to 15 mm and held for 1 minute. When that 1 minute was concluded, the balloon was deflated and retracted through the endoscope. The stricture itself was visualized and appeared to have a superficial tear. No excessive bleeding or deep tears were noted. The stomach was deflated and the endoscope removed from the patient with no new findings noted. RECOMMENDATIONS: The patient should be on a daily PPI if not already doing so. I would like him to monitor his response to today's therapy. He may require another dilation in the future should his results be suboptimal. As always, thank you for allowing me to participate in the healthcare of your patients. JOSE E
== END 2018-12-21 14:10 | disposition home or self-care (01) ==
LOC: HOP 11:49
PROVIDERS: ATTEND Internal Medicine Gastroenterology
DX: R13.10 Dysphagia, unspecified (principal); R93.3 Abnormal findings on diagnostic imaging of other parts of digestive tract; K22.2 Esophageal obstruction; K44.9 Diaphragmatic hernia without obstruction or gangrene; K20.9 Esophagitis, unspecified; I10 Essential (primary) hypertension; E11.9 Type 2 diabetes mellitus without complications; E78.00 Pure hypercholesterolemia, unspecified; M19.90 Unspecified osteoarthritis, unspecified site
CPT/HCPCS: C1726

== ENCOUNTER 2018-12-25 10:08 | Emergency (ER) | payer MEDICARE ==
--- NOTE | 2018-12-25 10:40 | Emergency Department Record ---
History of Present Illness - General Chief Complaint: Fall Injury Stated Complaint: BRUISING Time Seen by Provider: 12/25/18 10:24 Source: Patient Mode of Arrival: Ambulatory Limitations: No limitations - History of Present Illness Initial Comments: The patient is here due to bruising over the L buttock and leg since a fall 11 days ago. The patient states the bruising had been worsening since the fall but now has not changed over the last few days. He does have L hip pain that now is improving and he is able to get up the stairs better. The patient did call his PCP for an appointment today but since they were unable to get him in he was told to come to the ER. The patient was seen here in the ER 11 days ago and did have a neg L hip xray. The patient also states he does have a hx of significant bruising with minor trauma in the past. MD Complaint: Fall Onset/Timin -: Days(s) - Related Data Allergies Allergy/AdvReac Type Severity Reaction Status Date / Time levofloxacin [From Levaquin] Allergy Mild rash Verified 12/25/18 10:36 Cephalosporins Allergy Unknown RASH Verified 12/25/18 10:36 Review of Systems Constitutional: Denies: Chills, Fever Eyes: Denies: Eye discharge ENT: Denies: Congestion Respiratory: Denies: Cough, Dyspnea Past Medical History - SOCIAL HISTORY Smoking Status: Never smoker - RESPIRATORY Hx Respiratory Disorders: Yes Hx Asthma: Yes (no problems lately very rare inhaler usage) Hx Bronchitis: Yes Hx Sleep Apnea: Yes (uses a mouth appliance instead of cpap) Hx of CPAP: No (does not use) - CARDIOVASCULAR Comment:: high cholesterol - NEURO Hx Neuro Disorders: Yes Hx Headaches: Yes (sinus headaches occ) Hx TIA: Yes (May 2018) - GI Hx Nausea/Vomiting: Yes (occ nauesa) - Hx Genitourinary Disorders: Yes - ENDOCRINE Hx Endocrine Disorders: Yes Hx Diabetes: Yes Hx Thyroid Disease: No - MUSCULOSKELETAL Hx Musculoskeletal Disorders: Yes Hx Arthritis: Yes - PSYCH Hx Psych Problems: No - HEMATOLOGY/ONCOLOGY Hx Hematology/Oncology Disorders: Yes Family Medical History Family Hx Comment (NOT TO BE USED IN PLACE OF ITEMS BELOW): sister-may have had dysphagia with dilation, unknown for sure, pt lives in a fpc now. Hx Cancer: Brother/Sister *Cancer Comment: ? cancer prostate Hx Dementia: Brother/Sister *Dementia Comment: brother-parkinson's Hx Diabetes: Father Physical Exam - General General Appearance: Alert, Oriented x3, Cooperative, No acute distress - Head Head exam: Atraumatic - Eye Eye exam: Normal appearance - Neck Neck exam: Normal inspection, Full ROM. negative: Tenderness - Respiratory Respiratory exam: Normal lung sounds bilaterally. negative: Respiratory distress - Cardiovascular Cardiovascular Exam: Regular rate, Normal rhythm, Normal heart sounds - GI/Abdominal GI/Abdominal exam: Soft, Normal bowel sounds. negative: Tenderness - Extremities Extremities exam: Full ROM, Normal capillary refill, Tenderness (over the L buttock. There is significant bruising to the L buttock and down the L poterior thigh. ), Other (The lower legs are NVI with normal pulses.). negative: Normal inspection Image of Full Body: 1 - Area of significant bruising. - Neurological Neurological exam: Alert, Normal gait, Oriented X3, Reflexes normal. negative: Abnormal gait, Altered, Motor sensory deficit Course - Reevaluation(s) Reevaluation #1: I did discuss the neg xrays with the patient and the mild anemia. He is to take Tylenol for pain and to see his PCP for recheck later this week. He is to return to the ER for any worsening symptoms. 12/25/18 11:53 Medical Decision Making - Data Complexity MDM Data: Labs Ordered and/or Reviewed, X-Ray Ordered and/or Reviewed - Lab Data Result diagrams: 12/25/18 10:38 12/25/18 10:38 - Radiology Data Radiology results: Report reviewed (L hip: Neg for acute fx or dislocation.) Disposition Disposition: Discharge Clinical Impression: Contusion of hip Qualifiers: Encounter type: sequela Laterality: left Qualified Code(s): S70.02XS - Contusion of left hip, sequela Disposition: Home, Self-Care Condition: (2) Stable Instructions: Hip Contusion (ED) Additional Instructions: Please continue your regular medicines and please use Tylenol for pain. Please see your doctor next week as planned and bring your lab and xray results. Return to the ER for any worsening symptoms. Forms: Patient Portal Access Time of Disposition: 11:55 Quality - Quality Measures Quality Measures: N/A - Blood Pressure Screening View Details: Yes Does Patient Have Any of the Following: No Blood Pressure Classification: Pre-Hypertensive BP Reading Systolic Measurement: 119 Diastolic Measurement: 88 Screening for High Blood Pressure: < Pre-Hypertensive BP, F/U Documented > [G8950] Pre-Hypertensive Follow-up Interventions: Referral to alternative/primary care provider.
[2018-12-25 10:45] LABS: ABSOLUTE NEUTROPHIL COUNT 7.69; BASO % 0.5 % (0-6); EOS % 5.4 % (0-6); GRAN % 69.3 % (47-80); HEMOGLOBIN 11.1 gm/dl (14.0-18.0); LYMPH % 13.2 % (16-45); MEAN CELL VOLUME 92.1 fl (81-97); MEAN CORPUSCULAR HGB CONC 30.8 g/dl (32-36); MEAN PLATELET VOLUME 10.2 fl (7.4-10.4); MONO % 11.6 % (0-9); PLATELET COUNT 355 K/uL (130-400); RED BLOOD COUNT 3.91 M/uL (4.40-5.70); RED CELL DISTRIBUTION WIDTH 14.2 % (11.5-14.5); WHITE BLOOD COUNT W/O DIFF 11.1 K/uL (4.2-12.2)
[2018-12-25 10:47] LABS: MEAN CORPUSCULAR HEMOGLOBIN 28.3 pg (27-33)
[2018-12-25 10:53] LABS: BLOOD UREA NITROGEN 8 mg/dL (8-23); CREATININE 0.7 mg/dL (0.7-1.2); EST GLOMERULAR FILTRATION RATE > 60 mL/min
[2018-12-25 10:56] LABS: GLUCOSE,RANDOM 163 mg/dL (74-109); INR 1.1; PARTIAL THROMBOPLASTIN TIME 25.9 SECONDS (24.5-39.1); PROTHROMBIN TIME (PATIENT) 10.9 SECONDS (9.5-12.1)
--- NOTE | 2018-12-25 11:38 | RADIOLOGY REPORT ---
EXAMINATION: Left Hip Minimum Two Views EXAM DATE: 12/25/2018 11:28 AM TECHNIQUE: AP pelvis and left frog leg lateral hip views INDICATION: trauma COMPARISON: 12/14/2018 pelvic and left hip radiographs ENCOUNTER: Initial FINDINGS: Bones are normally aligned and mineralized. Minor bilateral hip joint space loss. 13 mm ossicle later al to the left superior labrum likely represents labral calcification. Bilateral femoral head osteoph ytes. Lower lumbar endplate degenerative changes. No fracture. IMPRESSION: No acute abnormality. Degenerative changes of the hips and spine. Dictated by: Fernandez Sosa MD on 12/25/2018 11:35 AM. .
== END 2018-12-25 12:00 | disposition home or self-care (01) ==
LOC: ER 10:08
DX: S70.02XA Contusion of left hip, initial encounter (principal); D64.9 Anemia, unspecified; W18.30XA Fall on same level, unspecified, initial encounter
CPT/HCPCS: 80048; 85025; 85610; 85730; 99284

== ENCOUNTER 2019-04-10 09:42 | Emergency (ER) | payer MEDICARE ==
--- NOTE | 2019-04-10 10:46 | Emergency Department Record ---
History of Present Illness - General Chief complaint: Foreign Body GI/ Stated complaint: FOOD STUCK IN THROAT Time Seen by Provider: 04/10/19 09:50 Source: Patient Mode of Arrival: Ambulatory Limitations: No limitations - History of Present Illness Initial comments: The patient is here due to having a hx of an esophageal stricture that was dilated by Dr. Saucedo 4 months ago who was eating pancakes this AM and possibly had some get stuck. The patient states he was only eating a small bite and felt it get stuck in the esophagus down low similar to past issues. He did gag and vomit minimally but feels it was still stuck so he came here. There was no SOB, SIMI, or choking and the patient has been talking normally since. MD complaint: Other Onset/Timin -: Hour(s) Severity scale (1-10): 4 Treatments Prior to Arrival: None - Related Data Allergies Allergy/AdvReac Type Severity Reaction Status Date / Time levofloxacin [From Levaquin] Allergy Mild rash Verified 04/10/19 09:51 Cephalosporins Allergy Unknown RASH Verified 04/10/19 09:51 Travel/Exposure Screening - Travel/Exposure Within Last 30 Days Have you traveled within the last 30 days?: No - Travel/Exposure Within Last Year Have you traveled outside the [place] in the last year?: No - Additonal Travel/Exposure Details Have you been exposed to anyone with a communicable illness?: No - Travel Symptoms Symptom Screening: None Review of Systems Constitutional: Denies: Chills, Fever Eyes: Denies: Eye discharge ENT: Denies: Congestion Respiratory: Denies: Cough, Dyspnea Past Medical History - SOCIAL HISTORY Smoking Status: Never smoker Alcohol Use: None Drug Use: None - RESPIRATORY Hx Respiratory Disorders: Yes Hx Asthma: Yes (no problems lately very rare inhaler usage) Hx Bronchitis: Yes Hx Sleep Apnea: Yes (uses a mouth appliance instead of cpap) Hx of CPAP: No (does not use) - CARDIOVASCULAR Hx Cardio Disorders: Yes Comment:: high cholesterol - NEURO Hx Neuro Disorders: Yes Hx Headaches: Yes (sinus headaches occ) Hx TIA: Yes (May 2018) - GI Hx GI Disorders: Yes Hx Nausea/Vomiting: Yes (occ nauesa) - Hx Genitourinary Disorders: Yes Hx Bladder Problem: Yes (NOCTURIA) - ENDOCRINE Hx Endocrine Disorders: Yes Hx Diabetes: Yes Hx Thyroid Disease: No - MUSCULOSKELETAL Hx Musculoskeletal Disorders: Yes Hx Arthritis: Yes - PSYCH Hx Psych Problems: No - HEMATOLOGY/ONCOLOGY Hx Hematology/Oncology Disorders: Yes Hx Anemia: Yes Family Medical History Any Significant Family History?: Yes Family Hx Comment (NOT TO BE USED IN PLACE OF ITEMS BELOW): sister-may have had dysphagia with dilation, unknown for sure, pt lives in a assisted now. Hx Cancer: Brother/Sister *Cancer Comment: ? cancer prostate Hx Dementia: Brother/Sister *Dementia Comment: brother-parkinson's Hx Diabetes: Father Physical Exam - General General Appearance: Alert, Oriented x3, Cooperative, No acute distress - Head Head exam: Atraumatic, Normocephalic - Eye Eye exam: Normal appearance - ENT Throat exam: Normal inspection. negative: Tonsillar erythema, Tonsillar exudate - Neck Neck exam: Normal inspection, Full ROM. negative: Tenderness - Respiratory Respiratory exam: Normal lung sounds bilaterally. negative: Respiratory distress - Cardiovascular Cardiovascular Exam: Regular rate, Normal rhythm, Normal heart sounds - GI/Abdominal GI/Abdominal exam: Soft, Normal bowel sounds. negative: Tenderness - Extremities Extremities exam: Normal inspection, Full ROM, Normal capillary refill. negative: Tenderness - Neurological Neurological exam: Alert. negative: Motor sensory deficit Course Vital Signs 04/10/19 09:45 Temperature 98.5 F Pulse Rate 81 Respiratory 18 Rate Blood Pressure 138/86 Pulse Ox 96 - Reevaluation(s) Reevaluation #1: After being in the room for 5 minutes the patient felt the blockage resolve. He is now drinking normally with no pain or problems. I did discuss the need to see Dr. Saucedo in the office for recheck and to eat only liquids going forward. 04/10/19 10:44 Disposition Disposition: Discharge Clinical Impression: Benign esophageal stricture Disposition: Home, Self-Care Condition: (2) Stable Instructions: Esophageal Foreign Body (ED) Additional Instructions: Please ONLY eat a full liquid diet and please see Dr. Saucedo for recheck in the office. Return to the ER for any further problems. Referrals: MADELIN SAUCEDO [DOCTOR OF OSTEOPATH] - Forms: Patient Portal Access Time of Disposition: 10:47 Quality - Quality Measures Quality Measures: N/A - Blood Pressure Screening View Details: Yes Does Patient Have Any of the Following: No Blood Pressure Classification: Pre-Hypertensive BP Reading Systolic Measurement: 138 Diastolic Measurement: 86 Screening for High Blood Pressure: < Pre-Hypertensive BP, F/U Documented > [G8950] Pre-Hypertensive Follow-up Interventions: Referral to alternative/primary care provider.
== END 2019-04-10 10:52 | disposition home or self-care (01) ==
LOC: ER 09:42
DX: K22.2 Esophageal obstruction (principal); E11.9 Type 2 diabetes mellitus without complications; Z79.84 Long term (current) use of oral hypoglycemic drugs; I10 Essential (primary) hypertension
CPT/HCPCS: 99282